=== PATIENT | female | born 1930 | race Two or more races ===

== ENCOUNTER 2019-03-06 20:34 | Emergency (ER) | payer OTHER ==
[~2019-03-06] VITALS: Ht 154.9 cm; Wt 68.1 kg
[2019-03-06] MEDS ORDERED: IV NS 0.9% 500 ML BAG IV ONE (21:00)
--- NOTE | 2019-03-06 21:00 | NUR ---
ADDENDUM: Intravenous End Time Documentation: Normal saline 500 cc (IV-WO): start time: 2100 pm ; end time: 0 pm : IV site: LAC # 20 Port #1
--- NOTE | 2019-03-06 21:10 | NUR ---
[id number] FROM HOME, DAUGHTER CALLED 911 FOR ALTERED MENTAL STATUS X1 DAY BS 190. PT ALTERED, WILL OPEN EYES, WILL SCREAM IF REPOSITION. RESP DISTRESS, O2 SAT 81-83% RA. PLACED ON NON REBREATHER, 15L & O2 SAT 100%. PLACED ON LONG TERM CARE PHLEBOTOMIST, SR. PT SEEN & EVAL'D BY DR. CHANEY. WILL CONT TO MONITOR.
[2019-03-06 21:13] LABS: APPEARANCE,URINE Clear (CLEAR); BILIRUBIN,URINE SMALL (NEGATIVE); BLOOD, URINE Negative Ery/uL (NEGATIVE); COLOR,URINE Yellow (YELLOW); KETONES,URINE Trace (NEGATIVE); LEUKOCYTE ESTERASE ,URINE Negative (NEGATIVE); NITRITE, URINE Negative (NEGATIVE); PH,URINE 5.5 (5.0-8.0); PROTEIN,URINE 30 mg/dl (NEGATIVE); UGLUCOSE Negative (NEGATIVE); UROBILINOGEN,URINE 0.2 EU/dL (0.2)
[2019-03-06 21:26] LABS: BACTERIA,URINE Few /HPF (None Seen); MUCUS,URINE Many /LPF (None Seen); RBC,URINE 0-2 /HPF (0-2); SQUAMOUS EPITHELIAL CELL,UR Few /HPF (None Seen); WBC,URINE 0-2 /HPF (0-3)
--- NOTE | 2019-03-06 21:30 | NUR ---
PLACED ON 4L OF O2 VIA NC, SAT 98%. PT ASLEEP, WILL OPEN EYES WHEN CHANGING POSITION, RR EVEN & UNLABORED. NAD NOTED @ THIS TIME. WILL CONT TO MONITOR. FAMILY @ BS.
[2019-03-06 21:33] LABS: ALANINE AMINOTRANSFERASE 14 U/L (12-78); ALBUMIN 3.1 g/dL (3.4-5.0); ALKALINE PHOSPHATASE 66 U/L (46-116); ASPARTATE AMINOTRANSFERASE 10 U/L (15-37); BILIRUBIN,DIRECT 0.2 mg/dL (0.0-0.2); BILIRUBIN,TOTAL 0.6 mg/dL (0.2-1.0); CALCIUM, SERUM 8.7 mg/dL (8.5-10.1); CARBON DIOXIDE 38 mmol/L (21-32); CHLORIDE 105 mmol/L (98-107); GLUCOSE 176 mg/dL (74-106); SODIUM SERUM 143 mmol/L (136-145); TOTAL PROTEIN, SERUM 6.1 g/dL (6.4-8.2); UREA NITROGEN, BLOOD 53 mg/dL (7-18)
[2019-03-06 21:34] LABS: POTASSIUM 6.4 mmol/L (3.5-5.1)
--- NOTE | 2019-03-06 21:39 | NUR ---
CALLED NURY FLORES
[2019-03-06 21:40] LABS: BASOPHILS # (AUTO) 0.1 /CMM (0.0-0.2); BASOPHILS % (AUTO) 1.7 % (0.0-2.0); EOSINOPHILS % (AUTO) 1.8 % (0.0-6.0); HEMATOCRIT 41 % (33-45); HEMOGLOBIN 11.9 g/dL (11.5-14.8); LYMPHOCYTES # (AUTO) 1.7 /CMM (0.8-4.8); LYMPHOCYTES % (AUTO) 19.4 % (20.0-44.0); MEAN CORPUSCULAR HGB CONC 29 g/dl (31.0-36.0); MEAN CORPUSCULAR VOLUME 76 fL (82-100); MONOCYTES # (AUTO) 0.8 /CMM (0.1-1.30); MONOCYTES % (AUTO) 9.6 % (2.0-12.0); NEUTROPHILS # (AUTO) 5.8 /CMM (1.8-8.9); NEUTROPHILS % (AUTO) 67.5 % (43.0-81.0); PLATELET COUNT (AUTO) 183 /CMM (150-450); RED BLOOD CELL COUNT(AUTO) 5.33 MIL/uL (4.0-5.2); WHITE BLOOD COUNT (AUTO) 8.6 K/uL (4.3-11.0)
[2019-03-06 21:57] LABS: SERUM AMMONIA < 10 umol/L (11-32)
[2019-03-06] MEDS ORDERED: INSULIN REGULAR, HUMAN 100 UNIT/ML 10 ML VIAL IV ONE (22:00)
[2019-03-06] MEDS ORDERED: DEXTROSE 50%-WATER 50 ML DISP.SYRIN IV ONE (22:00)
[2019-03-06] MEDS ORDERED: FUROSEMIDE 40 MG/4 ML VIAL IV ONE (22:00)
[2019-03-06] MEDS ORDERED: SODIUM POLYSTYRENE SULFONATE 15 G/60 ML BOTTLE PO ONE (22:00)
[2019-03-06] MEDS ORDERED: ALBUTEROL FS 2.5 MG/3 ML VIAL.NEB NEB ONE (22:00)
--- NOTE | 2019-03-06 22:08 | NUR ---
DR. CHANEY ON PHONE WITH NURY DYKES
--- NOTE | 2019-03-06 22:15 | NUR ---
DAUGHTER REFUSED CT SCAN OF HEAD FOR PT, ERMD AWARE.
[2019-03-06] MEDS ORDERED: DEXTROSE 50%-WATER 50 ML DISP.SYRIN ONE (22:23)
[2019-03-06] MEDS ORDERED: INSULIN REGULAR, HUMAN 100 UNIT/ML 10 ML VIAL ONE (22:23)
[2019-03-06] MEDS ORDERED: FUROSEMIDE 40 MG/4 ML VIAL ONE (22:23)
[2019-03-06] MEDS ORDERED: SODIUM POLYSTYRENE SULFONATE 15 G/60 ML BOTTLE ONE (22:23)
--- NOTE | 2019-03-06 22:25 | NUR ---
PT GETTING BREATHING TX, PT CORNELIO WELL.
[2019-03-06] MEDS ORDERED: ALBUTEROL FS 2.5 MG/3 ML VIAL.NEB ONE (22:27)
--- NOTE | 2019-03-06 22:45 | NUR ---
[facility] AWAITING FOLLOW UP REGARDING CT HEAD AND REPEAT POTASSIUM RESULTS. [phone] Addendum: 03/07/19 at 0019 by PO
--- NOTE | 2019-03-06 23:25 | NUR ---
REPORT RECEIVED FROM CHERYL LOWERY FOR [facility]. PT IN BED CURRENTLY ON BREATHING TX.
--- NOTE | 2019-03-07 00:20 | NUR ---
NOTIFIED THAT PT UNABLE TO DRINK KAYAXELATE. RECEIEVD VERBAL ORDER TO HOLD KAYAXELATE. EXTENSION AGENT AT BEDSIDE FOR BLOOD DRAW
[2019-03-07 00:34] LABS: CALCIUM, SERUM 8.3 mg/dL (8.5-10.1); CARBON DIOXIDE 34 mmol/L (21-32); CHLORIDE 107 mmol/L (98-107); GLUCOSE 125 mg/dL (74-106); POTASSIUM 5.6 mmol/L (3.5-5.1); SODIUM SERUM 145 mmol/L (136-145); UREA NITROGEN, BLOOD 54 mg/dL (7-18)
--- NOTE | 2019-03-07 01:08 | NUR ---
[facility] WILL BE TRANSFERRED TO [facility] ER ACCEPTING MD: DR. KIMBALL NUMBER FOR REPORT: [phone] [facility] TRANSPORTATION; ETA 020
--- NOTE | 2019-03-07 01:48 | NUR ---
CALLED [facility] TO GIVE REPORT. REPORT RECEIVED BY CHERYL YOUSSEF.
--- NOTE | 2019-03-07 01:58 | NUR ---
GAVE REPORT TO PRN 112 FOR TRANSPORTATION [facility]
[2019-03-07 02:20] VITALS: BP 95/50
== END 2019-03-07 02:30 ==
LOC: ER 20:36
DX: N17.9 Acute kidney failure, unspecified (principal); E87.5 Hyperkalemia; I50.9 Heart failure, unspecified; E11.9 Type 2 diabetes mellitus without complications
CPT/HCPCS: 36415 ×2; 71045; 80048 ×2; 80076; 81001; 82140; 82962; 84484; 85025; 85730; 87086; 93005; 94644; 96374; 96375; 99291; J1815; J1940; 81000-TC; J7040